=== PATIENT | female | born 1970 | race Caucasian/White ===

== ENCOUNTER 2016-10-09 13:08 | Emergency (ER) | payer BC, OTHER ==
[~2016-10-09] VITALS: Ht 172.7 cm; Wt 117.9 kg
[~2016-10-09 13:08] MED LIST: ACYC800T PO; ALB0.5V INH; ALBUNEBRX IH; AZIT-21 PO; CLAR-19 PO; CYCL10TA45 PO; CYCL10TA9 PO; DOXY100C2 PO; GFN600TCR; GUAI120S36 PO; HYDR-3720 PO; HYDR1TAB PO; HYDR1TAB8 OP; IBP200T PO; IBUP800T26 PO; IBUPROFEN; MTF500T PO; NAPR-243 PO; PARO37.512; PRD20T PO; PRX25T; SULF1TAB38 PO; TRAM50TA2 PO; TRM50T PO
--- NOTE | 2016-10-09 15:22 | ED Headache ---
General Chief Complaint: Head/Cervical Problems Stated Complaint: HEADACHE/NAUSEA JAW PAIN TICK ON BACK OF RT KNEE Nursing Triage Note: PT STATES SHE HAS HAD A HEADACHE FOR ABOUT A WEEK, R JAW PAIN THAT STARTED TODAY AND SHE ALSO NOTICED A TICK ON HER R LEG TODAY THAT SHE COULD NOT GET OUT. Nursing Sepsis Screen: No Definite Risk Source: patient, RN notes reviewed Exam Limitations: no limitations History of Present Illness Time seen by provider: 15:12 Allergies and Home Medications Allergies Coded Allergies: Penicillins (Verified Allergy, Unknown, 05/19/06) Home Medications Cyclobenzaprine Hcl 10 Mg Tablet, 10 MG PO TID PRN for PAIN, #10 Prescribed by: DARCI ADAN on 09/21/13 1558 Ibuprofen 800 Mg Tablet, 800 MG PO q8h PRN for PAIN, (Reported) Past Bzmcfqv-Gxdmlq-Xqkydd Hx Patient Social History Alcohol Use: Denies Use Recreational Drug Use: No Smoking Status: Current Everyday Smoker Type Used: Cigarettes Recent Foreign Travel: No Contact w/Someone Who Travel: No Recent Infectious Disease Expo: No Immunizations Up To Date Date of Pneumonia Vaccine: Apr 04, 2009 Seasonal Allergies Seasonal Allergies: No Surgeries HX Surgeries: Yes (HERNIA REPAIR.) Respiratory Hx Respiratory Disorders: No Cardiovascular Hx Cardiac Disorders: Yes (previous episodes of chest pain) Neurological Hx Neurological Disorders: No Reproductive System Hx Reproductive Disorders: No Sexually Transmitted Disease: No HIV/AIDS: No [employer] History: Tubal Ligation, Menopausal Genitourinary Hx Genitourinary Disorders: No Gastrointestinal Hx Gastrointestinal Disorders: Yes Gastrointestinal Disorders: Gastroesophageal Reflux, Hiatal Hernia Musculoskeletal Hx Musculoskeletal Disorders: Yes Musculoskeletal Disorders: Chronic Back Pain Endocrine Hx Endocrine Disorders: Yes Endocrine Disorders: Diabetes, Non-Insulin dep HEENT HX ENT Disorders: No Cancer Hx Cancer: No Psychosocial Hx Psychiatric Problems: No Integumentary HX Skin/Integumentary Disorder: No Blood Transfusions Hx Blood Disorders: No Family Medical History Significant Family History: No Pertinent Family Hx Physical Exam Vital Signs Vital Sign - Last 12Hours 10/09/16 14:35 Temp 98.3 Pulse 77 Resp 18 B/P (MAP) 151/76 Capillary Refill : Less Than 3 Seconds Progress/Results/Core Measures Results/Orders My Orders Orders - ANGELA LAWSON DO Ct Head/Maxillofacial Wo (10/09/16 15:21) Ketorolac Injection (Toradol Injection) (10/09/16 16:30) Dexamethasone Pf Injection (Decadron Pf (10/09/16 16:30) Vital Signs/I&O Vital Sign - Last 12Hours 10/09/16 14:35 Temp 98.3 Pulse 77 Resp 18 B/P (MAP) 151/76 Blood Pressure Mean: 101 Departure Impression Impression: Primary Impression: Tension type headache Additional Impression: TMJ arthralgia Disposition: 01 HOME, SELF-CARE Condition: Stable Departure-Patient Inst. Decision time for Depature: 16:25 Referrals: [facility] (PCP/Family) Primary Care Physician Patient Instructions: Temporomandibular Joint (TMJ) Disorders (DC), Tension Headache (DC) Scripts Diclofenac Sodium (Diclofenac Sodium) 50 Mg Tablet.dr 50 MG PO Q6H Y for RUTHEROFRD/JAW PAIN, #30 TAB 0 Refills Prov: ANGELA LAWSON DO 10/09/16 ANGELA LAWSON DO October 09, 2016 15:22
--- NOTE | 2016-10-09 16:04 | Diagnostic Imaging Report ---
PROCEDURE: CT head and maxillofacial without contrast. TECHNIQUE: Multiple contiguous axial images were obtained through the head and facial bones without the use of intravenous contrast. INDICATION: Headaches with bilateral jaw pain. FINDINGS: CT HEAD: There is no intracranial hemorrhage, edema or mass effect. The brain parenchyma demonstrate preserved ley-white matter differentiation. There is no hydrocephalus. No extra-axial fluid collection is seen. The calvarium appears grossly unremarkable. MAXILLOFACIAL CT: The zygomatic arch and both sides appear intact. The maxillary sinuses, frontal sinuses, and the sphenoidal sinuses appear clear. There is mild mucosal thickening gas seen in the right anterior ethmoid air cells. There is mild nasoseptal deviation to the right. Mild mucosal thickening in the inferior turbinates bilaterally. The mastoid air cells and middle ear cavities are clear. No fracture seen. IMPRESSION: CT HEAD: Unremarkable exam. CT MAXILLOFACIAL: Minimal mucosal thickening in the anterior right ethmoidal air cells. No significant abnormality seen otherwise. Dictated by: Dictated on workstation # [id number]
[2016-10-09] MEDS ORDERED: DICL50TA6 PO (16:27)
[2016-10-09] MEDS ORDERED: DEXAMETHASONE PF 10 MG/ML (DECADRON) VIAL IM ONE (16:30)
[2016-10-09] MEDS ORDERED: KETOROLAC 60 MG/2 ML VIAL IM ONE (16:30)
[2016-10-09 16:47] VITALS: BP 151/76
== END 2016-10-09 16:51 | disposition home or self-care (01) ==
LOC: EDUNIT# 13:08 → ER 13:11
DX: G44.209 Tension-type headache, unspecified, not intractable (principal); M26.623 Arthralgia of bilateral temporomandibular joint; E11.9 Type 2 diabetes mellitus without complications; F17.210 Nicotine dependence, cigarettes, uncomplicated
CPT/HCPCS: 70450; 70486; 96372; 99282

== ENCOUNTER → 2017-05-14 | Outpatient (CLI) | payer BC ==
[~2017-05-14] MED LIST changes: +DICL50TA6 PO
[2017-05-14 10:51] LABS: RED BLOOD COUNT 5.22 10^6/uL (4.35-5.85); WHITE BLOOD COUNT 7.2 10^3/uL (4.3-11.0)
[2017-05-14 10:52] LABS: BASOPHILS % (AUTO) 0 % (0-10); EOSINOPHILS # (AUTO) 0.2 10^3/uL (0.0-0.3); EOSINOPHILS % (AUTO) 2 % (0-10); LYMPHOCYTES # (AUTO) 2.4 X 10^3 (1.0-4.0); LYMPHOCYTES % (AUTO) 33 % (12-44); MEAN CORPUSCULAR HEMOGLOBIN 29 PG (25-34); MEAN CORPUSCULAR HGB CONC 33 G/DL (32-36); MEAN CORPUSCULAR VOLUME 88 FL (80-99); MEAN PLATELET VOLUME 9.5 FL (7.4-10.4); MONOCYTES # (AUTO) 0.9 X 10^3 (0.0-1.0); MONOCYTES % (AUTO) 13 % (0-12); NEUTROPHILS # (AUTO) 3.7 X 10^3 (1.8-7.8); NEUTROPHILS % (AUTO) 51 % (42-75); PLATELET COUNT 246 10^3/uL (130-400); RED CELL DISTRIBUTION WIDTH 12.8 % (10.0-14.5)
[2017-05-14 11:11] LABS: ALANINE AMINOTRANSFERASE 18 U/L (0-55); ALBUMIN 4.1 GM/DL (3.2-4.5); ANION GAP 7 MMOL/L (5-14); ASPARTATE AMINO TRANSFERASE 15 U/L (5-34); BILIRUBIN,TOTAL 0.3 MG/DL (0.1-1.0); BLOOD UREA NITROGEN 14 MG/DL (7-18); BUN/CREATININE RATIO 19; CALCIUM 9.7 MG/DL (8.5-10.1); CARBON DIOXIDE 29 MMOL/L (21-32); CHLORIDE 104 MMOL/L (98-107); CHOLESTEROL 233 MG/DL (< 200); CREATININE SERUM 0.73 MG/DL (0.60-1.30); DIRECT LDL 147 MG/DL (1-129); GFR ESTIMATED > 60; GLUCOSE 108 MG/DL (70-105); POTASSIUM 4.4 MMOL/L (3.6-5.0); SODIUM 140 MMOL/L (135-145); TOTAL PROTEIN 7.2 GM/DL (6.4-8.2); TRIGLYCERIDES 101 MG/DL (<150); VLDL CHOLESTEROL 20 MG/DL (5-40)
== END ==
LOC: LAB 10:27
PROVIDERS: ATTEND Family Medicine
DX: Z00.01 Encounter for general adult medical examination with abnormal findings (principal); L92.0 Granuloma annulare; Z13.1 Encounter for screening for diabetes mellitus; Z13.220 Encounter for screening for lipoid disorders
CPT/HCPCS: 36415; 80053; 80061; 83036; 84443; 85025; 86038; 86039

== ENCOUNTER → 2017-05-17 | Outpatient (CLI) | payer BC ==
--- NOTE | 2017-05-17 16:30 | Diagnostic Imaging Report ---
PROCEDURE: MRI right joint lower extremity without contrast. TECHNIQUE: Multiplanar, multisequence non contrast-enhanced MRI of the right lower extremity was accomplished. INDICATION: Right knee pain. FINDINGS: There is bwxo-xq-ixbokmdn suprapatellar effusion. There is a Breen's cyst measuring 3.6 x 2 x 4.2 cm in size. Small amount of fluid adjacent to it is suggestive of leakage. There is mild fluid in the superficial infrapatellar bursa suggestive of mild bursitis. The osseous structures demonstrate no significant marrow signal abnormality. The quadriceps tendon and the patellar tendon demonstrates slight tendinosis with no significant tear. The ACL and PCL appear intact. The lateral meniscus is intact. The medial meniscus demonstrates an oblique horizontal tear involving the body and posterior horn of the medial meniscus with no tear in the anterior horn. The lateral meniscus appear intact. The MCL and the lateral collateral ligament complex components appear intact. The body of the medial meniscus demonstrates extrusion. There is small marginal osteophyte formation in the medial and lateral compartments. 25-50% cartilage thinning in the medial compartment is seen. The cartilage in the patellofemoral and lateral compartments is relatively preserved. IMPRESSION: 1. Medial meniscus tear involving the body and posterior horn segments. 2. Mild osteoarthritic changes mostly in the medial compartment. 3. Leaking Breen's cyst. Dictated by: Dictated on workstation # [id number]
== END ==
LOC: RAD 15:08
PROVIDERS: ATTEND Physician Assistant
DX: S83.241A Other tear of medial meniscus, current injury, right knee, initial encounter (principal); M17.11 Unilateral primary osteoarthritis, right knee; M71.21 Synovial cyst of popliteal space [Baker], right knee
CPT/HCPCS: 73721

== ENCOUNTER → 2018-06-06 | Outpatient (CLI) | payer BC ==
[2018-06-06 07:20] LABS: BASOPHILS % (AUTO) 0 % (0-10); EOSINOPHILS # (AUTO) 0.1 10^3/uL (0.0-0.3); EOSINOPHILS % (AUTO) 2 % (0-10); HEMATOCRIT 47 % (35-52); HEMOGLOBIN 15.6 G/DL (11.5-16.0); LYMPHOCYTES # (AUTO) 2.6 X 10^3 (1.0-4.0); LYMPHOCYTES % (AUTO) 32 % (12-44); MEAN CORPUSCULAR HEMOGLOBIN 30 PG (25-34); MEAN CORPUSCULAR HGB CONC 33 G/DL (32-36); MEAN CORPUSCULAR VOLUME 89 FL (80-99); MEAN PLATELET VOLUME 9.8 FL (7.4-10.4); MONOCYTES # (AUTO) 1.1 X 10^3 (0.0-1.0); MONOCYTES % (AUTO) 14 % (0-12); NEUTROPHILS # (AUTO) 4.2 X 10^3 (1.8-7.8); NEUTROPHILS % (AUTO) 52 % (42-75); PLATELET COUNT 215 10^3/uL (130-400); RED BLOOD COUNT 5.28 10^6/uL (4.35-5.85); RED CELL DISTRIBUTION WIDTH 12.8 % (10.0-14.5)
[2018-06-06 07:37] LABS: ALANINE AMINOTRANSFERASE 14 U/L (0-55); ALBUMIN 4.1 GM/DL (3.2-4.5); ALKALINE PHOSPHATASE 76 U/L (40-136); BILIRUBIN,TOTAL 0.3 MG/DL (0.1-1.0); BUN/CREATININE RATIO 19; CALCIUM 9.6 MG/DL (8.5-10.1); CARBON DIOXIDE 23 MMOL/L (21-32); CHLORIDE 106 MMOL/L (98-107); CHOLESTEROL 238 MG/DL (< 200); CREATININE SERUM 0.79 MG/DL (0.60-1.30); GFR ESTIMATED > 60; GLUCOSE 103 MG/DL (70-105); HDL CHOLESTEROL 53 MG/DL (40-60); POTASSIUM 4.3 MMOL/L (3.6-5.0); SODIUM 140 MMOL/L (135-145); TOTAL PROTEIN 7.1 GM/DL (6.4-8.2); TRIGLYCERIDES 148 MG/DL (<150); VLDL CHOLESTEROL 30 MG/DL (5-40)
--- NOTE | 2018-06-06 08:58 | Diagnostic Imaging Report ---
Left forearm at 7:46. Indication: Mid forearm pain. AP and lateral views were obtained. There are no prior studies available for comparison. There is no fracture, dislocation or acute bony abnormality evident. The soft tissues are unremarkable. Impression: There is no evidence for an acute bony abnormality. Dictated by: Dictated on workstation # [id number]
== END ==
LOC: RAD 07:05
PROVIDERS: ATTEND Family Medicine
DX: Z00.00 Encounter for general adult medical examination without abnormal findings (principal); Z13.220 Encounter for screening for lipoid disorders; M79.632 Pain in left forearm; E66.9 Obesity, unspecified
CPT/HCPCS: 36415; 73090; 80053; 80061; 85025

== ENCOUNTER → 2019-05-24 | Emergency (ER) | payer BC ==
[~2019-05-24] VITALS: Ht 172.7 cm; Wt 127.0 kg
[~2019-05-24] MED LIST changes: +AZIT250T12 PO; +BENZ100C18 PO; +OMEP40CA36 PO; +RT-ALBUTEROL/IPRATROPIUM 3 ML (DUONEB) VIAL INH ONE; +RT-ALBUTEROL/IPRATROPIUM 3 ML (DUONEB) VIAL ONE
[2019-05-24 12:29] LABS: BASOPHILS % (AUTO) 0 % (0-10); EOSINOPHILS # (AUTO) 0.1 10^3/uL (0.0-0.3); EOSINOPHILS % (AUTO) 1 % (0-10); HEMATOCRIT 44 % (35-52); HEMOGLOBIN 15.1 G/DL (11.5-16.0); LYMPHOCYTES % (AUTO) 32 % (12-44); MEAN CORPUSCULAR HEMOGLOBIN 29 PG (25-34); MEAN CORPUSCULAR HGB CONC 34 G/DL (32-36); MEAN CORPUSCULAR VOLUME 86 FL (80-99); MEAN PLATELET VOLUME 9.2 FL (7.4-10.4); MONOCYTES # (AUTO) 1.2 X 10^3 (0.0-1.0); MONOCYTES % (AUTO) 13 % (0-12); NEUTROPHILS # (AUTO) 5.2 X 10^3 (1.8-7.8); NEUTROPHILS % (AUTO) 55 % (42-75); PLATELET COUNT 346 10^3/uL (130-400); WHITE BLOOD COUNT 9.6 10^3/uL (4.3-11.0)
--- NOTE | 2019-05-24 12:29 | ED Cough/URI ---
General Chief Complaint: Cough/Cold/Flu Symptoms Stated Complaint: COUGH/CHEST CONGESTION/SOB Nursing Triage Note: Pt c/o cough for two weeks with minimal production of green mucous. Sepsis Screen: No Definite Risk Source: patient Exam Limitations: no limitations History of Present Illness Date Seen by Provider: May 24, 2019 Time Seen by Provider: 12:25 Initial Comments This 49-year-old female presents with cough for the past 2 weeks with mild amount of green mucous production. The patient has had no associated significant headache stiff neck or photophobia. She denies associated nausea vomiting or diarrhea. Past medical history the patient has had previous pneumonia. Patient denies significant shortness of breath or chest pain. She's had no associated hemoptysis. She denies chest pain, palpitations, or peripheral edema. 10 years ago the patient had a history of significant reflux treated with a Parviz fundoplication with them the results. Patient is concerned that she may be suffering from reflux again Allergies and Home Medications Allergies Coded Allergies: Penicillins (Verified Allergy, Unknown, Anaphylaxis, 05/24/19) Home Medications Cyclobenzaprine Hcl 10 Mg Tablet, 10 MG PO TID PRN for PAIN Prescribed by: DARCI ADAN on 09/21/13 1558 Diclofenac Sodium 50 Mg Tablet.dr, 50 MG PO Q6H PRN for RUTHERFORD/JAW PAIN Prescribed by: ANGELA LAWSON on 10/09/16 1627 Ibuprofen 800 Mg Tablet, 800 MG PO q8h PRN for PAIN, (Reported) Patient Home Medication List Home Medication List Reviewed: Yes Review of Systems Review of Systems Constitutional: No chills; fever EENTM: No hearing loss, No ear pain, No throat pain Respiratory: see HPI, cough Cardiovascular: No chest pain, No palpitations Gastrointestinal: No abdominal pain, No nausea, No vomiting Genitourinary: no symptoms reported Musculoskeletal: no symptoms reported Skin: no symptoms reported; No rash Psychiatric/Neurological: No Symptoms Reported Hematologic/Lymphatic: No Symptoms Reported Immunological/Allergic: no symptoms reported Past Onvviwy-Wwpteb-Jyrcup Hx Past Med/Social Hx: Reviewed Nursing Past Med/Soc Hx Patient Social History Alcohol Use: Denies Use Recreational Drug Use: No Smoking Status: Current Everyday Smoker Type Used: Cigarettes Recent Foreign Travel: No Contact w/Someone Who Travel: No Recent Infectious Disease Expo: No Recent Hopitalizations: Yes Immunizations Up To Date Date of Pneumonia Vaccine: Apr 04, 2009 Seasonal Allergies Seasonal Allergies: No Past Medical History Surgeries: Yes (HERNIA REPAIR.) Respiratory: No Cardiac: Yes (previous episodes of chest pain) Neurological: No Reproductive Disorders: No [employer] History: Tubal Ligation, Menopausal Sexually Transmitted Disease: No HIV/AIDS: No Gastrointestinal: Yes Gastroesophageal Reflux, Hiatal Hernia Musculoskeletal: Yes Chronic Back Pain Endocrine: Yes Diabetes, Non-Insulin dep Cancer: No Psychosocial: No Integumentary: No Blood Disorders: No Family Medical History No Pertinent Family Hx Physical Exam Vital Signs - First Documented Capillary Refill : Less Than 3 Seconds Height: 5'8.00" Weight: 260lbs. oz. 117.530642sp; 42.00 BMI Method:Stated General Appearance: WD/WN, no apparent distress Eyes: Bilateral Eye Normal Inspection HEENT: normal ENT inspection, pharyngeal erythema Neck: non-tender, full range of motion, supple Respiratory: normal breath sounds, no respiratory distress Cardiovascular: regular rate, rhythm Gastrointestinal: normal bowel sounds, non tender, soft Extremities: normal range of motion, normal inspection Neurologic/Psychiatric: no motor/sensory deficits, alert Skin: normal color, warm/dry Progress/Results/Core Measures Suspected Sepsis Recent Fever Within 48 Hours: No Infection Criteria Present: None New/Unexplained Altered Menta: No Sepsis Screen: No Definite Risk SIRS Temperature: Pulse: 100 Respiratory Rate: 14 Laboratory Tests 05/24/19 12:20: White Blood Count 9.6 Blood Pressure 148 /89 Mean: 108 Laboratory Tests 05/24/19 12:20: Platelet Count 346 Results/Orders Lab Results Laboratory Tests Test 05/24/19 12:10 05/24/19 12:20 Range/Units Group A Streptococcus Screen NEGATIVE NEGATIVE White Blood Count 9.6 4.3-11.0 10^3/uL Red Blood Count 5.19 4.35-5.85 10^6/uL Hemoglobin 15.1 11.5-16.0 G/DL Hematocrit 44 35-52 % Mean Corpuscular Volume 86 80-99 FL Mean Corpuscular Hemoglobin 29 25-34 PG Mean Corpuscular Hemoglobin Concent 34 32-36 G/DL Red Cell Distribution Width 13.0 10.0-14.5 % Platelet Count 346 130-400 10^3/uL Mean Platelet Volume 9.2 7.4-10.4 FL Neutrophils (%) (Auto) 55 42-75 % Lymphocytes (%) (Auto) 32 12-44 % Monocytes (%) (Auto) 13 H 0-12 % Eosinophils (%) (Auto) 1 0-10 % Basophils (%) (Auto) 0 0-10 % Neutrophils # (Auto) 5.2 1.8-7.8 X 10^3 Lymphocytes # (Auto) 3.0 1.0-4.0 X 10^3 Monocytes # (Auto) 1.2 H 0.0-1.0 X 10^3 Eosinophils # (Auto) 0.1 0.0-0.3 10^3/uL Basophils # (Auto) 0.0 0.0-0.1 10^3/uL My Orders Orders - MARGAUX SEARS MD Albuterol/Ipra Inhalation Soln (Duoneb I (05/24/19 12:15) Svn Small Volume Nebulizer (05/24/19 12:10) Chest 1 View, Ap/Pa Only (05/24/19 12:11) Cbc With Automated Diff (05/24/19 12:11) Rapid Strep A Screen (05/24/19 12:11) Albuterol/Ipra Inhalation Soln (Duoneb I (05/24/19 12:09) Medications Given in ED Current Medications Medications Dose Ordered Sig/Beck Route Start Time Stop Time Status Last Admin Dose Admin Albuterol/ Ipratropium 3 ml ONCE ONCE INH 05/24/19 12:15 05/24/19 12:16 DC 05/24/19 12:14 3 ML Vital Signs/I&O 05/24/19 05/24/19 05/24/19 12:05 12:05 12:14 Temp 36.1 Pulse 100 Resp 14 B/P (MAP) 148/89 (108) Pulse Ox 97 93 O2 Delivery Room Air Room Air Room Air Capillary Refill : Less Than 3 Seconds Blood Pressure Mean: 108 Progress Note : Time: 12:44 Progress Note Patient's CBC and strep screen were unremarkable. Patient's chest x-ray demonstrated an increase in perihilar markings. After discussion of the patient's findings and with her history of severe reflux and a decade ago I placed the patient on the Z-Marin and Tessalon Perles for probable bronchitis. In addition I started the patient on omeprazole in the event that this is primarily from reflux. I asked that she follow-up closely with her primary care physician Dr. Trivedi on Sunday. I invited her to return the emergency Department if she had any further problems or questions. Departure Impression Primary Impression: Bronchitis Additional Impression: Reflux esophagitis Disposition: HOME, SELF-CARE Condition: Improved Departure-Patient Inst. Decision time for Depature: 12:56 Referrals: KOBI TRIVEDI MD (PCP/Family) Primary Care Physician Patient Instructions: Acid Reflux (Gastroesophageal Reflux Disease) in Adults, Acute Bronchitis, Adult (DC), Dyspepsia (DC) Add. Discharge Instructions: Tessalon Perles, Z-Marin, and omeprazole as prescribed. Close follow-up with Dr. Kobi Trivedi on Sunday. Return if any problems or questions. All discharge instructions reviewed with patient and/or family. Voiced understanding. Scripts Azithromycin (Azithromycin) 250 Mg Tablet 250 MG PO UD, #6 TAB TAKE 2 TABLETS ON DAY ONE THEN TAKE 1 TABLET DAILY FOR FOUR MORE DAYS Prov: MARGAUX SEARS MD 05/24/19 Benzonatate (TESSALON PERLES) 100 Mg Capsule 200 MG PO TID PRN for COUGH, #30 CAP Prov: MARGAUX SEARS MD 05/24/19 Omeprazole (Omeprazole) 40 Mg Capsule. 40 MG PO DAILY, #20 CAP Prov: MARGAUX SEARS MD 05/24/19 MARGAUX SEARS MD May 24, 2019 12:28
--- NOTE | 2019-05-24 12:48 | Diagnostic Imaging Report ---
EXAMINATION: Chest 1 view HISTORY: Shortness of breath COMPARISON: 06/18/2013 FINDINGS: There is patchy atelectasis involving the left lung. No edema or pneumonia. No pleural effusion or pneumothorax. Heart size normal. IMPRESSION: 1. Patchy atelectasis involving the left lung, increased from prior exam. Dictated by: Dictated on workstation # [id number]
[2019-05-24 13:00] VITALS: BP 124/67
== END | disposition home or self-care (01) ==
LOC: EDUNIT# 12:01 → ER 12:02
DX: J40 Bronchitis, not specified as acute or chronic (principal); K21.0 Gastro-esophageal reflux disease with esophagitis; E11.9 Type 2 diabetes mellitus without complications; F17.210 Nicotine dependence, cigarettes, uncomplicated; Z88.0 Allergy status to penicillin; Z98.51 Tubal ligation status
CPT/HCPCS: 36415; 71045; 85025; 87430; 94640

== ENCOUNTER 2019-08-05 15:51 | Emergency (ER) | payer BC ==
[~2019-08-05] VITALS: Ht 172 cm; Wt 127.0 kg
[~2019-08-05 15:51] MED LIST changes: +OMEP40CA27 PO; -OMEP40CA36 PO; -RT-ALBUTEROL/IPRATROPIUM 3 ML (DUONEB) VIAL INH ONE; -RT-ALBUTEROL/IPRATROPIUM 3 ML (DUONEB) VIAL ONE
[2019-08-05 16:02] VITALS: BP 148/87
--- NOTE | 2019-08-05 16:18 | ED Lower Extremity ---
General Chief Complaint: Lower Extremity Stated Complaint: KNEE PAIN Exam Limitations: no limitations History of Present Illness Date Seen by Provider: Aug 05, 2019 Time Seen by Provider: 16:14 Initial Comments 49-year-old female presents with left knee pain. Patient reports that 6 days ago she stepped down off of a step/stool and twisted her left knee. Patient was seen 4 days ago by her primary care provider. They have an MRI scheduled for 08/12/2019. Patient reports that she's continued to have some pain. Patient did not cw-uqeuol-uo with her primary care provider. Patient does not have any new injury besides that which she is very been seen. Allergies and Home Medications Allergies Coded Allergies: Penicillins (Verified Allergy, Unknown, Anaphylaxis, 05/24/19) Home Medications Azithromycin 250 Mg Tablet, 250 MG PO UD TAKE 2 TABLETS ON DAY ONE THEN TAKE 1 TABLET DAILY FOR FOUR MORE DAYS Prescribed by: MARGAUX SEARS MD on 05/24/19 1300 Benzonatate 100 Mg Capsule, 200 MG PO TID PRN for COUGH Prescribed by: MARGAUX SEARS MD on 05/24/19 1300 Cyclobenzaprine Hcl 10 Mg Tablet, 10 MG PO TID PRN for PAIN Prescribed by: DARCI ADAN on 09/21/13 1558 Diclofenac Sodium 50 Mg Tablet.dr, 50 MG PO Q6H PRN for RUTHERFORD/JAW PAIN Prescribed by: ANGELA LAWSON on 10/09/16 1627 Ibuprofen 800 Mg Tablet, 800 MG PO q8h PRN for PAIN, (Reported) Omeprazole 40 Mg Capsule.dr, 40 MG PO DAILY Prescribed by: MARGAUX SEARS MD on 05/24/19 1300 Patient Home Medication List Home Medication List Reviewed: Yes Review of Systems Constitutional: see HPI EENTM: see HPI Respiratory: see HPI Cardiovascular: see HPI Gastrointestinal: see HPI Genitourinary: see HPI Musculoskeletal: see HPI Skin: no symptoms reported Past Lfgekym-Ipkuwx-Xtotbw Hx Past Med/Social Hx: Reviewed Nursing Past Med/Soc Hx Patient Social History Type Used: Cigarettes Recent Foreign Travel: No Contact w/Someone Who Travel: No Recent Hopitalizations: Yes Immunizations Up To Date Date of Pneumonia Vaccine: Apr 04, 2009 Seasonal Allergies Seasonal Allergies: No Past Medical History Surgeries: Yes (HERNIA REPAIR.) Respiratory: No Cardiac: Yes (previous episodes of chest pain) Neurological: No Reproductive Disorders: No [employer] History: Tubal Ligation, Menopausal Sexually Transmitted Disease: No HIV/AIDS: No Gastrointestinal: Yes Gastroesophageal Reflux, Hiatal Hernia Musculoskeletal: Yes Chronic Back Pain Endocrine: Yes Diabetes, Non-Insulin dep Cancer: No Psychosocial: No Integumentary: No Blood Disorders: No Family Medical History No Pertinent Family Hx Physical Exam Vital Signs Capillary Refill : Height, Weight, BMI Height: 5'8.00" Weight: 260lbs. oz. 117.196409eg; 42.00 BMI Method:Stated General Appearance: WD/WN, obese Cardiovascular: regular rate, rhythm Respiratory: no respiratory distress Hips: bilateral hip non-tender Legs: bilateral leg non-tender Knees: right knee non-tender; left knee soft tissue tenderness; bilateral knee other (no signs of acute ligament instability.) Ankles: bilateral ankle non-tender Neurologic/Tendon: normal sensation Neurologic/Psychiatric: alert, normal mood/affect, oriented x 3 Skin: normal color, warm/dry Progress/Results/Core Measures Progress Progress Note : Time: 16:16 Progress Note Patient has already been seen and evaluated by her primary care provider with an MRI scheduled. With no acute injury or no indications for any further imaging or workup at this time. Discussed with patient that she can use an Rodriguez wrap along with topical lidocaine with menthol, Tylenol and ibuprofen as needed for pain. Patient ate something stronger for pain she will need to follow-up with her primary care provider. Patient is discharged home in stable condition Departure Impression Primary Impression: Injury of left knee Qualified Codes: S89.92XA - Unspecified injury of left lower leg, initial encounter Disposition: 01 HOME, SELF-CARE Condition: Stable Departure-Patient Inst. Referrals: RICH TRIVEDI MD (PCP/Family) Primary Care Physician Patient Instructions: Internal Derangement of the Knee (DC) Add. Discharge Instructions: 4% topical lidocaine with menthol to affected area as directed on package Warm moist heat to affected area Tylenol or ibuprofen as needed for pain Emergency department focuses on treating and ruling out life-threatening diseases. Whenever possible, a diagnosis is given. However, most patients are given an impression based on their history, physical exam, and workup during your brief time in the ER. Information about probable diagnosis and other educational material has been provided. Please take the time to read and understand this information. It is very important that you follow up with a physician as discussed during the visit today. Failure to adhere to your follow-up instructions may lead to severe disability, injury, or so please make sure to keep your appointments or obtain one as requested. Please keep in mind the emergency department is not designed to your primary care or "family doctor" and nonurgent issues are best evaluated by an outpatient physician All discharge instructions reviewed with patient and/or family. Voiced understanding. MARLEN VACA DO Aug 05, 2019 16:18
== END 2019-08-05 16:29 | disposition home or self-care (01) ==
LOC: EDUNIT# 15:51 → ER 15:53
DX: S89.92XA Unspecified injury of left lower leg, initial encounter (principal); K21.9 Gastro-esophageal reflux disease without esophagitis; Z88.0 Allergy status to penicillin; X50.1XXA Overexertion from prolonged static or awkward postures, initial encounter
CPT/HCPCS: 99283

== ENCOUNTER → 2019-08-12 | Outpatient (CLI) | payer BC ==
--- NOTE | 2019-08-12 11:34 | Diagnostic Imaging Report ---
EXAMINATION: Magnetic resonance imaging of the left knee without intravenous contrast DATE: August 12, 2019. COMPARISON: None. INDICATION: 49-year-old female, left knee pain after injury. TECHNIQUE: Multiplanar, multisequence non contrast enhanced MR imaging was accomplished. FINDINGS: There are some limitations of the exam relating to the low zegdpk-ah-jfizt ratio. MENISCI: There is an oblique tear with inferior surface extension involving the body and posterior horn of the medial meniscus. The lateral meniscus is intact. LIGAMENTS AND TENDONS: The anterior and posterior cruciate ligaments are intact. The medial collateral ligament is intact. The iliotibial band, mid third lateral capsular ligament, fibular collateral ligament, biceps femoris tendon and conjoined tendon are intact. The quadriceps tendon and patella ligament are intact. JOINT: There is a cartilage flap measuring 3 mm in transverse dimension involving the medial patellar facet on axial T2 fat saturation sequence image 7. There is mild thinning of the cartilage of the median patellar ridge and medial aspect of the lateral patellar facet. There is mild medial compartment cartilage thinning and surface irregularity. There is a trace knee joint effusion without prominent synovitis or identified intra-articular body. BONE: There is unremarkable bone marrow signal. Specifically, negative for fracture, osteomyelitis, osteonecrosis, or marrow replacing process. BURSAE AND SOFT TISSUES: There is no Breen's cyst. There is nonspecific predominantly anterior subcutaneous edema. IMPRESSION: 1. Oblique tear with inferior surface extension involving the body and posterior horn of the medial meniscus. 2. Intact lateral meniscus. 3. Intact anterior and posterior cruciate ligaments. Additional ligaments and tendons are intact. 4. No acute fracture, bone contusion, or evidence of osteonecrosis. 5. Mild patellofemoral and medial compartment osteoarthritis. Trace knee joint effusion without prominent synovitis or identified intra-articular body. Dictated by: Dictated on workstation # [id number]
== END ==
LOC: RAD 10:03
PROVIDERS: ATTEND Family Medicine
DX: S83.242A Other tear of medial meniscus, current injury, left knee, initial encounter (principal); M17.12 Unilateral primary osteoarthritis, left knee
CPT/HCPCS: 73721

== ENCOUNTER → 2019-11-26 | Outpatient (CLI) | payer BC ==
--- NOTE | 2019-11-26 14:37 | Diagnostic Imaging Report ---
PROCEDURE: MRI lumbar spine. TECHNIQUE: Multiplanar, multisequence MRI of the lumbar spine was performed without contrast. INDICATION: Chronic low back pain. COMPARISON: No prior studies are available for comparison. FINDINGS: Curvature of the lumbar spine is normal. There is minimal retrolisthesis of L2 on L3. Vertebral body heights are well-maintained. No acute compression fracture is seen. No geographic marrow lesion is seen apart from small benign hemangiolipomas at the L1 and L4 levels. There is some disc space narrowing and desiccation at L2-L3 level compatible with degenerative disc disease. There is some mild desiccation at L4-L5 and L5-S1 levels but no disc space narrowing is seen. The conus is unremarkable at the L1 level. T12-L1: Central canal is widely patent. Neural foramina are patent. L1-L2: Central canal is widely patent. Neural foramina are patent. L2-L3: There is broad-based disc/osteophyte complex indenting the ventral thecal sac. There is mild canal narrowing. There is also moderate narrowing in bilateral lateral recesses. No significant neural foraminal narrowing is seen. L3-L4: Central canal and neural foramina are patent. L4-L5: Central canal is widely patent. There is a broad-based far lateral disc/osteophyte complex resulting in bilateral neural foraminal narrowing, moderate bilaterally. There is also bilateral lateral recess narrowing. L5-S1: Central canal is widely patent. There is moderate bilateral neural foraminal narrowing bilaterally due to broad-based disc/osteophyte complex. Paraspinous tissues are unremarkable. IMPRESSION: Generalized lumbar spondylosis with lateral recess and neural foraminal narrowing described level by level above. There is also mild central canal narrowing at L2-L3 level. Dictated by: Dictated on workstation # [id number]
== END ==
LOC: RAD 13:31
PROVIDERS: ATTEND Orthopaedic Surgery
DX: M47.26 Other spondylosis with radiculopathy, lumbar region (principal)
CPT/HCPCS: 72148

== ENCOUNTER → 2020-01-23 | Outpatient (CLI) | payer BC ==
[2020-01-23 08:33] LABS: BASOPHILS % (AUTO) 0 % (0-10); EOSINOPHILS # (AUTO) 0.2 10^3/uL (0.0-0.3); EOSINOPHILS % (AUTO) 2 % (0-10); HEMATOCRIT 45 % (35-52); HEMOGLOBIN 15.2 G/DL (11.5-16.0); LYMPHOCYTES # (AUTO) 2.6 X 10^3 (1.0-4.0); LYMPHOCYTES % (AUTO) 29 % (12-44); MEAN CORPUSCULAR HEMOGLOBIN 30 PG (25-34); MEAN CORPUSCULAR HGB CONC 34 G/DL (32-36); MEAN CORPUSCULAR VOLUME 87 FL (80-99); MEAN PLATELET VOLUME 9.6 FL (7.4-10.4); MONOCYTES # (AUTO) 1.1 X 10^3 (0.0-1.0); MONOCYTES % (AUTO) 12 % (0-12); NEUTROPHILS # (AUTO) 4.9 X 10^3 (1.8-7.8); NEUTROPHILS % (AUTO) 56 % (42-75); PLATELET COUNT 235 10^3/uL (130-400); RED CELL DISTRIBUTION WIDTH 13.2 % (10.0-14.5); WHITE BLOOD COUNT 8.7 10^3/uL (4.3-11.0)
[2020-01-23 08:50] LABS: ALANINE AMINOTRANSFERASE 15 U/L (0-55); ALBUMIN 4.4 GM/DL (3.2-4.5); ALKALINE PHOSPHATASE 82 U/L (40-136); BILIRUBIN,TOTAL 0.4 MG/DL (0.1-1.0); BUN/CREATININE RATIO 16; CALCIUM 9.5 MG/DL (8.5-10.1); CARBON DIOXIDE 26 MMOL/L (21-32); CHLORIDE 102 MMOL/L (98-107); CHOLESTEROL 242 MG/DL (< 200); GFR ESTIMATED > 60; GLUCOSE 110 MG/DL (70-105); HDL CHOLESTEROL 60 MG/DL (40-60); MAGNESIUM 2.1 MG/DL (1.6-2.4); POTASSIUM 3.6 MMOL/L (3.6-5.0); SODIUM 136 MMOL/L (135-145); TOTAL PROTEIN 7.7 GM/DL (6.4-8.2); TRIGLYCERIDES 134 MG/DL (<150); VLDL CHOLESTEROL 27 MG/DL (5-40)
== END ==
LOC: LAB 08:11
PROVIDERS: ATTEND Family Medicine
DX: Z13.220 Encounter for screening for lipoid disorders (principal); R25.2 Cramp and spasm; R53.83 Other fatigue
CPT/HCPCS: 36415; 80053; 80061; 83735; 85025

== ENCOUNTER → 2020-09-07 | Outpatient (CLI) | payer BC | LOC: CARD 08:30 | PROVIDERS: ATTEND Internal Medicine Cardiovascular Disease | DX: I51.7 Cardiomegaly (principal); I34.0 Nonrheumatic mitral (valve) insufficiency; Z86.16 Personal history of COVID-19 | CPT/HCPCS: 93225; 93226; 93306 ==

== ENCOUNTER → 2020-09-08 | Outpatient (CLI) | payer BC ==
[2020-09-08 09:23] LABS: BASOPHILS % (AUTO) 1 % (0-10); EOSINOPHILS # (AUTO) 0.2 10^3/uL (0.0-0.3); EOSINOPHILS % (AUTO) 2 % (0-10); HEMATOCRIT 48 % (35-52); HEMOGLOBIN 15.3 g/dL (11.5-16.0); LYMPHOCYTES # (AUTO) 1.7 10^3/uL (1.0-4.0); LYMPHOCYTES % (AUTO) 24 % (12-44); MEAN CORPUSCULAR HEMOGLOBIN 29 pg (25-34); MEAN CORPUSCULAR HGB CONC 32 g/dL (32-36); MEAN CORPUSCULAR VOLUME 92 fL (80-99); MEAN PLATELET VOLUME 9.4 fL (9.0-12.2); MONOCYTES # (AUTO) 0.8 10^3/uL (0.0-1.0); MONOCYTES % (AUTO) 11 % (0-12); NEUTROPHILS # (AUTO) 4.4 10^3/uL (1.8-7.8); NEUTROPHILS % (AUTO) 61 % (42-75); PLATELET COUNT 246 10^3/uL (130-400); WHITE BLOOD COUNT 7.1 10^3/uL (4.3-11.0)
[2020-09-08 09:42] LABS: ALANINE AMINOTRANSFERASE 17 U/L (0-55); ALKALINE PHOSPHATASE 76 U/L (40-136); BILIRUBIN,TOTAL 0.4 MG/DL (0.1-1.0); BUN/CREATININE RATIO 12; CALCIUM 9.1 MG/DL (8.5-10.1); CARBON DIOXIDE 23 MMOL/L (21-32); CHLORIDE 108 MMOL/L (98-107); CREATININE SERUM 0.81 MG/DL (0.60-1.30); GFR ESTIMATED > 60; GLUCOSE 114 MG/DL (70-105); MAGNESIUM 2.1 MG/DL (1.6-2.4); POTASSIUM 4.3 MMOL/L (3.6-5.0); SODIUM 140 MMOL/L (135-145); TOTAL PROTEIN 7.1 GM/DL (6.4-8.2)
[2020-09-08 09:43] LABS: ERYTHROCYTE SEDIMENTATION RATE 4 MM/HR (0-30)
== END ==
LOC: LAB 09:05
PROVIDERS: ATTEND Internal Medicine Cardiovascular Disease
DX: R06.09 Other forms of dyspnea (principal)
CPT/HCPCS: 36415; 80053; 83735; 84443; 85025; 85652

== ENCOUNTER → 2020-09-24 | Outpatient (CLI) | payer BC ==
[~2020-09-24] VITALS: Ht 172 cm; Wt 118.0 kg
[~2020-09-24] MED LIST changes: +REGADENOSON 0.4 MG/5 ML SYR (LEXISCAN) IV ONE
[2020-09-24] MEDS: CATHETER FLUSH 10 ML SYR IV PRN ×2 (07:27→08:51)
[2020-09-24 08:49] VITALS: BP 140/67
--- NOTE | 2020-09-27 11:47 | STRESS TEST ---
DATE OF SERVICE: 09/24/2020 RESTING AND POST REGADENOSON TECHNETIUM-99M TETROFOSMIN SPECT CT IMAGING ORDERING PHYSICIAN: Dr. Rivas. PRIMARY PHYSICIAN: Dr. Palmer. CLINICAL DIAGNOSIS: Shortness of breath. Baseline images were carried out after injection of 10.17 mCi of technetium-99m Tetrofosmin. This was followed by 0.4 mg Regadenoson and 28.4 mCi of technetium-99m Tetrofosmin for stress imaging. The electrocardiogram shows sinus rhythm at baseline. It did not change significantly with the Regadenoson infusion. Review of images at rest and following stress indicates a perfusion defect, small to moderate, at the apex, which is seen both at rest and following Regadenoson infusion. However, gated images show normal global left ventricular systolic function, including normal motion of the apical wall of the left ventricle. This indicates that there may be small to moderate amount of apical ischemia. Left ventricular ejection fraction is calculated to be 68%. Left ventricular end diastolic volume is 79 mL. TID is absent (1.04). CONCLUSIONS: 1. This study suggests a small to moderate amount of anteroapical ischemia. 2. Normal regional wall motion. 3. Normal global left ventricular systolic function with an ejection fraction of 68%. Job ID: [id number] DocumentID: [id number] Dictated Date: 09/27/2020 10:02:59 Filer Helper Date: 09/27/2020 11:47:02 Dictated By: MANOHAR RIVAS MD, MA, FACP, FACC,
== END ==
LOC: CARD 07:30
PROVIDERS: ATTEND Internal Medicine Cardiovascular Disease
DX: R06.09 Other forms of dyspnea (principal); R06.02 Shortness of breath
CPT/HCPCS: 78452; 93017; A9502

== ENCOUNTER 2020-10-12 09:58 | Day surgery (SDC) | payer BC ==
[~2020-10-12] VITALS: Ht 172 cm; Wt 120.0 kg
[2020-10-12] VITALS (11 sets, daily range): BP systolic 124–145; BP diastolic 41–80
[~2020-10-12 09:58] MED LIST changes: -REGADENOSON 0.4 MG/5 ML SYR (LEXISCAN) IV ONE
[2020-10-12] MEDS ORDERED: HEParin (CATH LAB) 2,000 ML IV ONE (10:08)
[2020-10-12] MEDS ORDERED: LIDOCAINE 1% INJ 20 ML 20 ML VIAL ONE (10:08)
[2020-10-12] MEDS ORDERED: NS IV 1000 ML 1,000 ML ONE (10:09)
[2020-10-12] MEDS ORDERED: NS IV 1000 ML 1,000 ML IV SCH ×2 (10:30→13:15)
[2020-10-12 10:43] LABS: HEMOGLOBIN 15.1 g/dL (11.5-16.0); MEAN PLATELET VOLUME 9.6 fL (9.0-12.2)
[2020-10-12] MEDS ORDERED: ASPI-999 PO (10:44)
[2020-10-12] MEDS ORDERED: METO100T6 PO (10:44)
[2020-10-12 10:54] LABS: INR 0.9 (0.8-1.4); PROTHROMBIN TIME PATIENT 12.1 SEC (12.2-14.7)
[2020-10-12 11:02] LABS: ALANINE AMINOTRANSFERASE 21 U/L (0-55); ALBUMIN 4.3 GM/DL (3.2-4.5); ALKALINE PHOSPHATASE 75 U/L (40-136); BILIRUBIN,TOTAL 0.4 MG/DL (0.1-1.0); BUN/CREATININE RATIO 10; CALCIUM 9.4 MG/DL (8.5-10.1); CARBON DIOXIDE 27 MMOL/L (21-32); CHLORIDE 103 MMOL/L (98-107); CHOLESTEROL 230 MG/DL (< 200); CREATININE SERUM 0.79 MG/DL (0.60-1.30); GFR ESTIMATED > 60; GLUCOSE 108 MG/DL (70-105); HDL CHOLESTEROL 54 MG/DL (40-60); POTASSIUM 3.8 MMOL/L (3.6-5.0); SODIUM 140 MMOL/L (135-145); TOTAL PROTEIN 7.5 GM/DL (6.4-8.2); TRIGLYCERIDES 146 MG/DL (<150); VLDL CHOLESTEROL 29 MG/DL (5-40)
[2020-10-12] MEDS ORDERED: fentaNYL INJ 100 MCG/2 ML AMP ONE (12:11)
[2020-10-12] MEDS ORDERED: MIDAZOLAM 5 MG/5 ML (VERSED) VIAL ONE (12:11)
--- NOTE | 2020-10-12 13:11 | Cardiac Procedure Note-CS/ASA ---
Pre-Procedure Note Pre-Op Procedure Note H&P Reviewed The H&P was reviewed, patient examined and no changes noted. Date H&P Reviewed: October 12, 2020 Time H&P Reviewed: 12:30 Conscious Sedation Pre-Proced Time 12:30 ASA Score 3 For ASA 3 and 4: Consider anesthesia and medical clearance. Also, for patients with a history of failed moderate sedation consider anesthesia. Airway Lungs Heart ASA score ASA 1: a normal healthy patient ASA 2: a patient with a mild systemic disease (mid diabetes, controlled hypertension, obesity ASA 3: a patient with a severe systemic disease that limits activity (angina, COPD, prior Myocardial infarction) ASA 4: a patient with an incapacitating disease that is a constant threat to life (CHF, renal failure) ASA 5: a moribund patient not expected to survive 24 hrs. (ruptured aneurysm) ASA 6: a declared brain- patient whose organs are being harvested. For emergent operations, add the letter E after the classification Mallampati Classification Grade 3 Sedation Plan Analgesia, Amnesia, Plan communicated to team members, Discussed options with patient/fam, Discussed risks with patient/fam The patient is an appropriate candidate to undergo the planned procedure, sedation, and anesthesia. The patient immediately re-assessed prior to indication. MANOHAR ALBERTO MD FACP FAC CCDS October 12, 2020 13:11
[2020-10-12] MEDS ORDERED: PATIENT MAY USE OWN MEDS, ALL PO SCH (13:15)
--- NOTE | 2020-10-12 13:15 | Discharge Inst-Cardiology ---
Discharge Inst-Cardiac Discharge Medications Continued Medications: Ibuprofen (Ibuprofen) 800 Mg Tablet 800 MG PO q8h PRN for PAIN, TAB Metoprolol Succinate (Toprol Xl) 100 Mg Tab.er.24h 100 MG PO DAILY, TAB Discontinued Medications: Aspirin (Aspirin) 81 Mg Tab.chew 81 MG PO DAILY, TAB MANOHAR ALBERTO MD FACP FAC CCDS October 12, 2020 13:15
--- NOTE | 2020-10-12 13:15 | Discharge Inst-Post CATH ---
Discharge Inst-CATH/EP Post Cardiac Cath/EP D/C Inst Follow Up/Plan F/u with Dr Rivas in 2 weeks ACTIVITY * Go Home directly and rest. * Limit activity of the leg (or wrist if it was used) for 7 days including aerobics, swimming, jogging, bicycling, etc. * Restrict stair-climbing for 7 days if possible, if not, climb up with your n on-cath leg, then bring together on the same step. * Avoid lifting, pushing, pulling or excessive movement of the affected ex tremity for 7 days. * Customary sexual activity may be resumed after 2 days-use caution not to use a position that strains or causes pain to the affected extremity. * No driving for 24 hours. * NO SMOKING. * Avoid straining for bowel movements for 7 days. * Gentle walking on level ground is allowed. * Returning to work will depend on the type of procedure and the results. Your doctor will discuss this with you. CALL YOUR DOCTOR FOR ANY OF THE FOLLOWING: *If bleeding from the puncture site occurs- Apply gentle pressure to site with clean cloth and call your doctor or EMS. * If a knot or lump forms under the skin, increases in size, or causes pain. * If bruising appears to be worsening or moving further down your leg instead of disappearing. * Temperature above 101 F. CARE OF YOUR GROIN INCISION; * Bruising or purple discoloration of the skin near the puncture site is common. * You may shower only, no bathtub bathing for 5 days. Be careful to avoid slipping as your leg may feel stiff. * If a closure device was used on your femoral artery, please see the attached guide regarding care of the device and your leg. * Leave dressing on FOR 24 hours. CARE OF YOUR WRIST INCISION; * Bruising or purple discoloration of the skin near the puncture site is common. * You may shower. * DO NOT submerge wrist. * Leave dressing on FOR 24 hours. MANOAHR RIVAS MD FACP FAC CCDS October 12, 2020 13:15
--- NOTE | 2020-10-12 15:41 | CARDIAC CATHETERIZATION ---
DATE OF SERVICE: 10/12/2020 CARDIAC CATHETERIZATION INDICATION FOR PROCEDURE: The patient is a 50-year-old lady, who has been experiencing palpitations and increasing shortness of breath. A myocardial perfusion imaging study was indicative of apical ischemia. Cardiac catheterization was carried out after having obtained an informed consent. DESCRIPTION OF PROCEDURE: She was brought to the cardiac catheterization laboratory in a fasting state. Right groin was prepared and draped in the usual sterile fashion. Lidocaine 1% was used for local anesthesia. Modified Seldinger technique was used to advance a 5-Paraguayan sheath in the right femoral artery, 5-[place]agu[place] JL4 catheter for left coronary angiography, 5-[place]aguayan JR4 catheter was used for right coronary angiography, 5-[place]aguayan pigtail catheter was used for left heart catheterization and left ventricular angiography. Angiography of the right femoral artery was carried out through the sheath. The site of sheath insertion did not appear suitable for device closure. She was transferred to the holding area for manual sheath removal. She tolerated the procedure well. HEMODYNAMICS: Left ventricular end-diastolic pressure following coronary angiography was 14 mmHg. There was no significant pressure gradient on pullback across the aortic valve. Ascending aortic pressure was 92/53 with a mean of 70 mmHg. CORONARY ANGIOGRAPHY: Left main coronary artery, left anterior descending artery, left circumflex artery, and right coronary artery do not exhibit any angiographically significant coronary artery disease. LEFT VENTRICULAR ANGIOGRAPHY: Left ventricular angiography was carried out in the right anterior oblique projection. Global left ventricular systolic function is normal. Left ventricular ejection fraction is estimated to be 60%. CONCLUSIONS: 1. No significant coronary artery disease seen on this study. 2. Normal global left ventricular systolic function with an ejection fraction of approximately 60%. 3. Mild elevation of left ventricular end-diastolic pressure. DISCUSSION AND RECOMMENDATIONS: Based on results of the study, symptoms do not appear to be of coronary origin. Myocardial perfusion imaging appears to have been false positive. Continuing risk factor modification is advised. Outpatient followup is advised. Job ID: [id number] DocumentID: [id number] Dictated Date: 10/12/2020 13:19:21 Ballroom Dancer Date: 10/12/2020 15:40:49 Dictated By: MANOHAR ALBERTO MD, MA, FACP, FACC, MTDD
== END 2020-10-12 18:00 ==
LOC: CATH 09:58 → SDC 13:30 → CATH 18:00
PROVIDERS: ATTEND Internal Medicine Cardiovascular Disease
DX: R00.2 Palpitations (principal); R06.09 Other forms of dyspnea; R94.39 Abnormal result of other cardiovascular function study; I99.8 Other disorder of circulatory system; I10 Essential (primary) hypertension; F17.210 Nicotine dependence, cigarettes, uncomplicated; Z88.0 Allergy status to penicillin; Z90.49 Acquired absence of other specified parts of digestive tract; Z79.899 Other long term (current) drug therapy; Z82.49 Family history of ischemic heart disease and other diseases of the circulatory system; Z83.3 Family history of diabetes mellitus; Z80.9 Family history of malignant neoplasm, unspecified
CPT/HCPCS: 80053; 80061; 85027; 85610; 85730; 87081; 93458; C1894; 36415

== ENCOUNTER 2021-12-20 18:04 | Emergency (ER) | payer BC ==
[~2021-12-20] VITALS: Ht 172.7 cm; Wt 120.0 kg
[~2021-12-20 18:04] MED LIST changes: +ASPI-999 PO; +METO100T6 PO; -OMEP40CA27 PO; +OMEP40CA6 PO
[2021-12-20 18:46] LABS: BASOPHILS % (AUTO) 0 % (0-10); EOSINOPHILS # (AUTO) 0.1 10^3/uL (0.0-0.3); EOSINOPHILS % (AUTO) 1 % (0-10); HEMATOCRIT 49 % (35-52); HEMOGLOBIN 16.1 g/dL (11.5-16.0); LYMPHOCYTES # (AUTO) 2.3 10^3/uL (1.0-4.0); LYMPHOCYTES % (AUTO) 24 % (12-44); MEAN CORPUSCULAR HEMOGLOBIN 29 pg (25-34); MEAN CORPUSCULAR HGB CONC 33 g/dL (32-36); MEAN CORPUSCULAR VOLUME 89 fL (80-99); MEAN PLATELET VOLUME 9.5 fL (9.0-12.2); MONOCYTES # (AUTO) 1.1 10^3/uL (0.0-1.0); MONOCYTES % (AUTO) 11 % (0-12); NEUTROPHILS % (AUTO) 63 % (42-75); PLATELET COUNT 231 10^3/uL (130-400); WHITE BLOOD COUNT 9.5 10^3/uL (4.3-11.0)
[2021-12-20 19:01] LABS: ALBUMIN 4.4 GM/DL (3.2-4.5); POTASSIUM 4.1 MMOL/L (3.6-5.0)
[2021-12-20 19:02] LABS: CALCIUM 9.8 MG/DL (8.5-10.1)
[2021-12-20 19:03] LABS: INR 0.9 (0.8-1.4); TOTAL PROTEIN 7.6 GM/DL (6.4-8.2)
[2021-12-20 19:05] LABS: BILIRUBIN,TOTAL 0.4 MG/DL (0.1-1.0)
[2021-12-20 19:07] LABS: CREATININE SERUM 0.8 MG/DL (0.60-1.30)
[2021-12-20 19:10] LABS: MAGNESIUM 2.1 MG/DL (1.6-2.4)
--- NOTE | 2021-12-20 19:27 | Diagnostic Imaging Report ---
INDICATION: Back pain COMPARED with 05/24/2019 FINDINGS: The lungs clear. No failure, effusion or pneumothorax. IMPRESSION: No acute appearing abnormality. Dictated by: Dictated on workstation # [id number]
--- NOTE | 2021-12-20 19:33 | ED Chest Pain ---
General Chief Complaint: Back Problems Stated Complaint: [place], CHEST DISCOMFORT, NECK AND BACK PAIN Nursing Triage Note: C/O BACK PAIN IN HER UPPER BACK SINCE SUNDAY ACROSS HER SHOULDERS, NOW TODAY IS HAVING HEADACHE, "CHEST DISCOMFORT WHERE SHE CAN FEEL HERHEART FLUTTERING". STATES SHE HAS TAKEN IBUPROFEN 400 MG Q 4 HERS TO HELP BUT PAIN RETURNS. HX OF HTN Source: patient Exam Limitations: no limitations History of Present Illness Date Seen by Provider: Dec 20, 2021 Time Seen by Provider: 18:23 Initial Comments This 51-year-old woman presents to the emergency room with complaints of headache, hypertension, upper back pain between the shoulder blades, and a fluttering sensation in her chest. She has had the pain in her upper back for about 3 days. The fluttering in her chest and headache started today. She has been taking ibuprofen which has been mildly helpful. Pain worsens with position changes and movement. She denies any true chest pain or equivalents. Few PVCs are noted on telemetry. Allergies and Home Medications Allergies Coded Allergies: Penicillins (Verified Allergy, Unknown, Anaphylaxis, 05/24/19) Patient Home Medication List Home Medication List Reviewed: Yes Cyclobenzaprine HCl (Cyclobenzaprine HCl) 10 Mg Tablet, 10 MG PO Q8H PRN for SPASMS Prescribed by: EARL PARK on 12/20/212004 Ibuprofen (Ibuprofen) 800 Mg Tablet, 800 MG PO q8h PRN for PAIN, (Reported) Entered as Reported by: MARIPOSA CRUM on 09/21/13 1534 Metoprolol Succinate (Toprol Xl) 100 Mg Tab.er.24h, 100 MG PO DAILY, (Reported) Entered as Reported by: DEREK STEVENSON on 10/12/20 1044 Review of Systems Review of Systems Constitutional: no symptoms reported EENTM: No Symptoms Reported Respiratory: No Symptoms Reported Cardiovascular: See HPI Gastrointestinal: No Symptoms Reported Genitourinary: No Symptoms Reported Musculoskeletal: see HPI Skin: no symptoms reported Psychiatric/Neurological: See HPI Endocrine: No Symptoms Reported Hematologic/Lymphatic: No Symptoms Reported Past Sqenikz-Evkfdh-Qzaclw Hx Patient Social History Tobacco Use?: Yes Tobacco type used: Cigarettes Smoking Status: Current Everyday Smoker Use of E-Cig and/or Vaping dev: No Substance use?: No Alcohol Use?: No Immunizations Up To Date Tetanus Booster (TDap): Unknown PED Vaccines UTD: Yes Influenza Vaccine Up-to-Date: No; Not Current First/Initial COVID19 Vaccinat: 2020 Second COVID19 Vaccination Esteban: 2020 COVID19 Vaccine Orthodontic Technician: ENIO Seasonal Allergies Seasonal Allergies: No Past Medical History Surgery/Hospitalization HX: HTN Surgeries: Yes (HERNIA REPAIR, thoracentesis) Abdominal (Hiatal hernia), Gallbladder, Orthopedic, Tubal Ligation Respiratory: Yes Pneumonia Cardiac: Yes (previous episodes of chest pain) Hypertension Neurological: No Reproductive Disorders: No LEGAL CONTRACTS SPECIALIST History: Tubal Ligation, Menopausal Sexually Transmitted Disease: No HIV/AIDS: No Genitourinary: No Gastrointestinal: Yes Gastroesophageal Reflux, Hiatal Hernia Musculoskeletal: Yes Chronic Back Pain Endocrine: Yes Diabetes, Non-Insulin dep Cancer: No Psychosocial: No Integumentary: No Blood Disorders: No Family Medical History No Pertinent Family Hx Physical Exam Vital Signs Vital Signs - First Documented 12/20/21 18:15 Temp 36.6 Pulse 75 Resp 18 B/P (MAP) 179/108 (131) Pulse Ox 98 O2 Delivery Room Air Capillary Refill : Less Than 3 Seconds Height, Weight, BMI Height: 5'8.00" Weight: 260lbs. oz. 117.801598iu; 40.00 BMI Method:Stated General Appearance: No Apparent Distress, WD/WN HEENT: PERRL/EOMI, Normal ENT Inspection Neck: Normal Inspection, Other (Tense, tender paraspinous muscles posteriorly and at the base of the occiput) Respiratory: Chest Non Tender, Lungs Clear, Normal Breath Sounds, No Accessory Muscle Use Cardiovascular: Regular Rate, Rhythm, No Edema, No Murmur Gastrointestinal: Normal Bowel Sounds, Non Tender, Soft Extremity: Normal Inspection, Non Tender, No Pedal Edema Neurologic/Psychiatric: Alert, Oriented x3, No Motor/Sensory Deficits, Normal Mood/Affect, wreath and garland maker II-XII Norm as Tested Skin: Normal Color, Warm/Dry Progress/Results/Core Measures Results/Orders Lab Results Laboratory Tests Test 12/20/21 18:39 Range/Units White Blood Count 9.5 4.3-11.0 10^3/uL Red Blood Count 5.48 H 3.80-5.11 10^6/uL Hemoglobin 16.1 H 11.5-16.0 g/dL Hematocrit 49 35-52 % Mean Corpuscular Volume 89 80-99 fL Mean Corpuscular Hemoglobin 29 25-34 pg Mean Corpuscular Hemoglobin Concent 33 32-36 g/dL Red Cell Distribution Width 12.7 10.0-14.5 % Platelet Count 231 130-400 10^3/uL Mean Platelet Volume 9.5 9.0-12.2 fL Immature Granulocyte % (Auto) 0 % Neutrophils (%) (Auto) 63 42-75 % Lymphocytes (%) (Auto) 24 12-44 % Monocytes (%) (Auto) 11 0-12 % Eosinophils (%) (Auto) 1 0-10 % Basophils (%) (Auto) 0 0-10 % Neutrophils # (Auto) 6.0 1.8-7.8 10^3/uL Lymphocytes # (Auto) 2.3 1.0-4.0 10^3/uL Monocytes # (Auto) 1.1 H 0.0-1.0 10^3/uL Eosinophils # (Auto) 0.1 0.0-0.3 10^3/uL Basophils # (Auto) 0.0 0.0-0.1 10^3/uL Immature Granulocyte # (Auto) 0.0 0.0-0.1 10^3/uL Prothrombin Time 12.0 L 12.2-14.7 SEC INR Comment 0.9 0.8-1.4 Activated Partial Thromboplast Time 31 24-35 SEC Sodium Level 139 135-145 MMOL/L Potassium Level 4.1 3.6-5.0 MMOL/L Chloride Level 104 98-107 MMOL/L Carbon Dioxide Level 22 21-32 MMOL/L Anion Gap 13 5-14 MMOL/L Blood Urea Nitrogen 11 7-18 MG/DL Creatinine 0.80 0.60-1.30 MG/DL Estimat Glomerular Filtration Rate 89 BUN/Creatinine Ratio 14 Glucose Level 110 H 70-105 MG/DL Calcium Level 9.8 8.5-10.1 MG/DL Corrected Calcium 9.5 8.5-10.1 MG/DL Magnesium Level 2.1 1.6-2.4 MG/DL Total Bilirubin 0.4 0.1-1.0 MG/DL Aspartate Amino Transf (AST/SGOT) 16 5-34 U/L Alanine Aminotransferase (ALT/SGPT) 18 0-55 U/L Alkaline Phosphatase 71 40-136 U/L Myoglobin 19.7 10.0-92.0 NG/ML Troponin I < 0.028 <0.028 NG/ML Total Protein 7.6 6.4-8.2 GM/DL Albumin 4.4 3.2-4.5 GM/DL Influenza Type A (RT-PCR) Not Detected Not Detecte Influenza Type B (RT-PCR) Not Detected Not Detecte SARS-CoV-2 RNA (RT-PCR) Not Detected Not Detecte My Orders Orders - EARL GRIFFIN MD Covid 19 Inhouse Test (12/20/21 18:23) Influenza A And B By Pcr (12/20/21 18:23) Cbc With Automated Diff (12/20/21 18:24) Magnesium (12/20/21 18:24) Chest 1 View, Ap/Pa Only (12/20/21 18:24) Ekg Tracing (12/20/21 18:24) Comprehensive Metabolic Panel (12/20/21 18:24) Myoglobin Serum (12/20/21 18:24) Protime With Inr (12/20/21 18:24) Partial Thromboplastin Time (12/20/21 18:24) O2 (12/20/21 18:24) Monitor-Rhythm Ecg Trace Only (12/20/21 18:24) Ed Iv/Invasive Line Start (12/20/21 18:24) Troponin I [place] (12/20/21 18:24) Vital Signs/I&O 12/20/21 12/20/21 18:15 20:27 Temp 36.6 Pulse 75 77 Resp 18 22 B/P (MAP) 179/108 (131) 127/56 Pulse Ox 98 95 O2 Delivery Room Air 2 Blood Pressure Mean: 131 Progress Progress Note : Progress Note Work-up was essentially unremarkable. Hypertension resolved without any particular treatment. See discharge instructions for further discussion. Initial ECG Impression Date: Dec 20, 2021 Initial ECG Impression Time: 18:36 Initial ECG Rate: 69 Initial ECG Rhythm: Normal Sinus Initial ECG Impression: Normal Comment Normal sinus rhythm with no ST elevation or depression. No abnormal intervals or axis deviation. Diagnostic Imaging Diagonstic Imaging: Xray Plain Films/CT/US/NM/MRI: chest Comments NAME: HAMLET DEMARCOIGETTE Michi MED REC#: [id number] PT STATUS: REG ER : 1970 PHYSICIAN: EARL GRIFFIN MD ADMIT DATE: 12/20/21/ER Signed Date of Exam:12/20/21 CHEST 1 VIEW, AP/PA ONLY INDICATION: Back pain COMPARED with 05/24/2019 FINDINGS: The lungs clear. No failure, effusion or pneumothorax. IMPRESSION: No acute appearing abnormality. Dictated by: Dictated on workstation # [id number] Dict: 12/20/211919 Trans: 12/20/212024 [facility] [id number] Interpreted by: NICO OAKLEY Electronically signed by: NICO OAKLEY 12/20/212024 Departure Impression Primary Impression: Palpitations Additional Impressions: Upper back pain Tension headache Disposition: 01 HOME, SELF-CARE Condition: Stable Departure-Patient Inst. Decision time for Depature: 19:53 Referrals: RICH TRIVEDI MD (PCP/Family) Primary Care Physician Patient Instructions: Palpitations, Upper Back Pain, Ventricular Premature Beats Add. Discharge Instructions: Based on your evaluation in the emergency room, your palpitations may be related to premature ventricular contractions (PVCs). These are not inherently dangerous. If your palpitations become persistent and bothersome, please discuss with Dr. Trivedi or Dr. Bo. You may need cardiac monitoring such as a Holter monitor to evaluate your palpitations further. Your upper back pain seems to be musculoskeletal in nature based on the history you provided in the ER. You may continue taking ibuprofen up to 600 mg every 6 hours as needed for primary short-term pain management. Take with food or milk to avoid stomach upset. Add Tylenol (acetaminophen) up to 1000 mg every 6 hours as needed for additional pain relief. Nonpharmacologic therapies such as massage therapy, physical therapy, chiropractic treatments, or acupuncture may also be very helpful in treating your pain. Gentle heat and gentle stretching may be helpful also. These treatments may also be helpful for tension headaches. Additionally, you may try the cyclobenzaprine muscle relaxer at bedtime to help alleviate tension headaches. Continue your medications as previously prescribed. Work toward quitting smoking as this will improve your bone health and your general health. Acid reflux could also be a contributing factor to your back pain. You may try an antacid medication such as Pepcid (famotidine) 20 mg twice daily or omeprazole 20 mg daily for the next couple of weeks. In general you can help reduce acid reflux by avoiding the following: Eating large meals, eating close to bedtime, caffeine, carbonation, citrus fruits and juices, tomato products, chocolate, mints, NSAID medications such as ibuprofen or naproxen, alcohol, tobacco, spicy foods, fatty/greasy foods, or anything else you know irritate your stomach.. Follow-up with your primary care provider within the next couple of weeks for further discussion about these issues. Return to the ER if you have worsening symptoms despite following these recommendations. All discharge instructions reviewed with patient and/or family. Voiced understanding. Scripts Cyclobenzaprine HCl (Cyclobenzaprine HCl) 10 Mg Tablet 10 MG PO Q8H PRN for SPASMS, #10 TAB 0 Refills Prov: EARL GRIFFIN MD 12/20/21 Copy Copies To 1: RICH TRIVEDI MD Copies To 2: DINA BO MD, JOSHUA T MD Dec 20, 2021 19:33
[2021-12-20] MEDS ORDERED: CYCL10TA25 PO (20:05)
[2021-12-20 20:27] VITALS: BP 127/56
== END 2021-12-20 20:27 | disposition home or self-care (01) ==
LOC: EDUNIT# 18:04 → ER 18:07
DX: G44.209 Tension-type headache, unspecified, not intractable (principal); M54.6 Pain in thoracic spine; R00.2 Palpitations; F17.210 Nicotine dependence, cigarettes, uncomplicated; Z20.822 Contact with and (suspected) exposure to COVID-19
CPT/HCPCS: 36415; 71045; 80053; 83735; 83874; 84484; 85025; 85610; 85730; 87636; 93005; 93041

== ENCOUNTER → 2022-06-23 | Outpatient (CLI) | payer BC ==
[~2022-06-23] MED LIST changes: +CYCL10TA25 PO
== END ==
LOC: CARD 09:29
PROVIDERS: ATTEND Internal Medicine Cardiovascular Disease
DX: I34.0 Nonrheumatic mitral (valve) insufficiency (principal); I27.20 Pulmonary hypertension, unspecified
CPT/HCPCS: 93306

== ENCOUNTER 2022-11-09 22:41 | Emergency (ER) | payer BC ==
[~2022-11-09] VITALS: Ht 172 cm; Wt 120.0 kg
[2022-11-09 23:14] LABS: BASOPHILS % (AUTO) 0 % (0-10); EOSINOPHILS # (AUTO) 0.1 10^3/uL (0.0-0.3); EOSINOPHILS % (AUTO) 1 % (0-10); HEMATOCRIT 46 % (35-52); HEMOGLOBIN 15.2 g/dL (11.5-16.0); LYMPHOCYTES # (AUTO) 2.6 10^3/uL (1.0-4.0); LYMPHOCYTES % (AUTO) 26 % (12-44); MEAN CORPUSCULAR HEMOGLOBIN 30 pg (25-34); MEAN CORPUSCULAR HGB CONC 33 g/dL (32-36); MEAN CORPUSCULAR VOLUME 89 fL (80-99); MEAN PLATELET VOLUME 9.7 fL (9.0-12.2); MONOCYTES # (AUTO) 1.1 10^3/uL (0.0-1.0); MONOCYTES % (AUTO) 11 % (0-12); NEUTROPHILS # (AUTO) 6.3 10^3/uL (1.8-7.8); NEUTROPHILS % (AUTO) 62 % (42-75); PLATELET COUNT 206 10^3/uL (130-400); WHITE BLOOD COUNT 10.2 10^3/uL (4.3-11.0)
[2022-11-09] MEDS ORDERED: ASPIRIN 81 MG CHEW (CHILDREN'S ASA) PO ONE (23:15)
[2022-11-09] MEDS ORDERED: NITROGLYCERIN 0.4 MG SL TABS BTL 25'S SL PRN (23:15)
[2022-11-09 23:28] LABS: INR 0.9 (0.8-1.4); PROTHROMBIN TIME PATIENT 12.2 SEC (12.2-14.7)
[2022-11-09 23:32] LABS: FIBRIN DEGRADATION PRODUCTS 0.61 UG/ML (0.00-0.49)
[2022-11-09 23:36] LABS: ALANINE AMINOTRANSFERASE 15 U/L (0-55); ALBUMIN 4.3 GM/DL (3.2-4.5); ALKALINE PHOSPHATASE 70 U/L (40-136); AMYLASE 35 U/L (25-125); BILIRUBIN,TOTAL 0.3 MG/DL (0.1-1.0); BUN/CREATININE RATIO 18; CALCIUM 9.7 MG/DL (8.5-10.1); CARBON DIOXIDE 23 MMOL/L (21-32); CHLORIDE 104 MMOL/L (98-107); CREATINE KINASE 78 U/L (29-168); CREATININE SERUM 0.91 MG/DL (0.60-1.30); GFR ESTIMATED 75; GLUCOSE 115 MG/DL (70-105); LIPASE 25 U/L (8-78); MAGNESIUM 2.1 MG/DL (1.6-2.4); POTASSIUM 3.8 MMOL/L (3.6-5.0); SODIUM 137 MMOL/L (135-145); TOTAL PROTEIN 7.5 GM/DL (6.4-8.2)
[2022-11-09 23:43] LABS: CREATINE KINASE MB 0.5 NG/ML (<6.6)
[2022-11-09] MEDS ORDERED: KETOROLAC 30 MG/ML VIAL IVP STA (23:56)
[2022-11-10] MEDS ORDERED: LACTATED RINGERS 1,000 ML IV ONE
--- NOTE | 2022-11-10 00:06 | ED General ---
General Chief Complaint: Chest Pain Stated Complaint: UPPER BACK PAIN Nursing Triage Note: Pt stated yesterday around 1400hrs constant stabbing back pain and some chest disconfort, 5/10 pain scale. Pt stated moving arms makes pain worse, Pt stated took IB around 1700hrs today and it helps. Pt denies any nausea, vomiting, SOB, sweaty. Pt stated has some right eye change vision. Pt denies any injuries. Source of Information: Patient History of Present Illness Date Seen by Provider: Nov 10, 2022 Time Seen by Provider: 23:08 Initial Comments PT ARRIVES VIA POV FROM HOME SHE STATES THAT SINCE AROUND 1400 YESTERDAY AFTERNOON, WHILE SITTING, SHE BEGAN TO HAVE SHARP PAIN IN HER UPPER BACK BETWEEN HER SHOULDER BLADES AND A DULL ACHING PAIN IN THE CENTER OF HER CHEST THE PAIN IN HER BACK IS CONSTANT AND IS WORSE WITH MOVEMENTS, LAYING FLAT ON HER BACK OR TAKING A DEEP BREATH, IT IS BETTER WITH IBUPROFEN--LAST DOSE 1700 TODAY. RATES PAIN IN BACK A 5/10 AT THIS TIME THE PAIN IN THE CENTER OF HER CHEST COMES AND GOES AND NOTHING WORSENS OR IMPROVES IT. RATES PAIN IN HER CHEST A 1/10 AT THIS TIME PT SMOKES 1 PPD, NO CHANGE IN CHRONIC COUGH SHE HAS BEEN SLIGHTLY MORE SHORT OF BREATH THAN NORMAL SINCE YESTERDAY NO FEVER/SWEATS/CHILLS NO SWELLING IN LEGS/FEET OR PAIN IN CALVES NO GI SYMPTOMS NO PALPITATIONS NO DIZZINESS OR SYNCOPE. NO RECENT ILLNESS NO INJURY OR UNUSUAL ACTIVITY. SHE WORKS AT [employer], BUT DOES NOT DO ANY LIFTING, ETC. SHE HAS HAD COVID VACCINE X 2, NO FLU VACCINE SHE STATES HER ONLY MEDICAL PROBLEM IS HTN, AND STATES SHE IS FOLLOWED BY DR. PRETTY FOR THAT SHE STATES SHE HAS HAD STRESS TEST IN THE PAST THAT WAS NORMAL. SHE DENIES ANY HISTORY OF CARDIAC PROBLEMS OR ANY RESPIRATORY PROBLEMS SUCH COPD OR ASTHMA OR CHRONIC BRONCHITIS ON REVIEW OF PRIOR RECORDS, SHE HAS HAD EPISODES OF CHEST PAIN IN THE PAST, AND HAS CHRONIC BACK PAIN SHE ALSO HAS HISTORY OF NON INSULIN DEPENDENT DIABETES. PT HAD CARDIAC CATH 10/12/[address] ALBERTO: CONCLUSIONS: 1. No significant coronary artery disease seen on this study. 2. Normal global left ventricular systolic function with an ejection fraction of approximately 60%. 3. Mild elevation of left ventricular end-diastolic pressure. DISCUSSION AND RECOMMENDATIONS: Based on results of the study, symptoms do not appear to be of coronary origin. Myocardial perfusion imaging appears to have been false positive. Continuing risk factor modification is advised. Outpatient followup is advised. PCP: DR. RICH TRIVEDI CONTINUOUS CRUSHER OPERATOR: DR. PRETTY Allergies and Home Medications Allergies Coded Allergies: Penicillins (Verified Allergy, Unknown, Anaphylaxis, 05/24/19) Patient Home Medication List Home Medication List Reviewed: Yes Cyclobenzaprine HCl (Cyclobenzaprine HCl) 10 Mg Tablet, 10 MG PO Q8H PRN for SPASMS Prescribed by: EARL PARK on 12/20/212004 Ibuprofen (Ibuprofen) 800 Mg Tablet, 800 MG PO q8h PRN for PAIN, (Reported) Entered as Reported by: MARIPOSA CRUM on 09/21/13 1534 Ketorolac Tromethamine (Ketorolac Tromethamine) 10 Mg Tablet, 10 MG PO Q6H Prescribed by: BRIANNE RODRIGUEZ on 11/10/22 0353 Metoprolol Succinate (Toprol Xl) 100 Mg Tab.er.24h, 100 MG PO DAILY, (Reported) Entered as Reported by: DEREK STEVENSON on 10/12/20 1044 Tizanidine HCl (Zanaflex) 4 Mg Capsule, 4 MG PO TID Prescribed by: BRIANNE RODRIGUEZ on 11/10/22 0353 Review of Systems Review of Systems Constitutional: no symptoms reported EENTM: no symptoms reported Respiratory: see HPI Cardiovascular: see HPI Gastrointestinal: no symptoms reported Genitourinary: no symptoms reported : No (MENOPAUSALX 12 YEARS) Musculoskeletal: see HPI Skin: no symptoms reported Psychiatric/Neurological: No Symptoms Reported Hematologic/Lymphatic: No Symptoms Reported Immunological/Allergic: no symptoms reported Past Cjoihzn-Bdjzpw-Kwnbdd Hx Patient Social History Tobacco Use?: Yes (SMOKES 1 PPD) Tobacco type used: Cigarettes Smoking Status: Current Everyday Smoker Use of E-Cig and/or Vaping dev: No Substance use?: No Alcohol Use?: Yes Alcohol Frequency: Rarely Pt feels they are or have been: No Immunizations Up To Date Tetanus Booster (TDap): Unknown PED Vaccines UTD: Yes First/Initial COVID19 Vaccinat: 2020 Second COVID19 Vaccination Esteban: 2020 Seasonal Allergies Seasonal Allergies: No Past Medical History Surgery/Hospitalization HX: HTN, bill knee, tubal ligation Surgeries: Yes (HERNIA REPAIR, thoracentesis; LAP NITHIN;BILAT KNEE SCOPES;) Abdominal, Gallbladder, Orthopedic, Tonsillectomy, Tubal Ligation Respiratory: Yes Pneumonia Cardiac: Yes (previous episodes of chest pain) Hypertension Neurological: No Reproductive Disorders: No POSTAL WORKER History: Tubal Ligation, Menopausal Sexually Transmitted Disease: No HIV/AIDS: No Genitourinary: No Gastrointestinal: Yes (S/P LAP NITHIN AND CHOLECYSTECTOMY) Gastroesophageal Reflux, Hiatal Hernia Musculoskeletal: Yes Chronic Back Pain Endocrine: Yes Diabetes, Non-Insulin dep HEENT: Yes (S/P TONSILLECTOMY) Cancer: No Psychosocial: No Integumentary: No Blood Disorders: No Family Medical History No Pertinent Family Hx CARDIAC CATH 10/12/[address] ALBERTO: CONCLUSIONS: 1. No significant coronary artery disease seen on this study. 2. Normal global left ventricular systolic function with an ejection fraction of approximately 60%. 3. Mild elevation of left ventricular end-diastolic pressure. DISCUSSION AND RECOMMENDATIONS: Based on results of the study, symptoms do not appear to be of coronary origin. Myocardial perfusion imaging appears to have been false positive. Continuing risk factor modification is advised. Outpatient followup is advised. Physical Exam Vital Signs Vital Signs - First Documented 11/09/22 11/10/22 22:51 03:54 Temp 32.6 Pulse 78 Resp 20 B/P (MAP) 149/67 (94) Pulse Ox 96 O2 Delivery Room Air Capillary Refill : Less Than 3 Seconds Height, Weight, BMI Height: 5'8.00" Weight: 260lbs. oz. 117.225478bo; 40.00 BMI Method:Stated General Appearance: No Apparent Distress, WD/WN, Obese, Other (REEKS OF CIGARETTES) HEENT: PERRL/EOMI Neck: Normal Inspection Respiratory: Chest Non Tender, Normal Breath Sounds, No Accessory Muscle Use, No Respiratory Distress Cardiovascular: Regular Rate, Rhythm, No Edema, No JVD, No Murmur, Normal Peripheral Pulses Gastrointestinal: Non Tender, Soft Back: Normal Inspection, No CVA Tenderness, No Vertebral Tenderness Extremity: Normal Capillary Refill, Normal Inspection, Normal Range of Motion, Non Tender, No Calf Tenderness, No Pedal Edema Neurologic/Psychiatric: Alert, Oriented x3, No Motor/Sensory Deficits, Normal Mood/Affect, customer experience leader II-XII Norm as Tested Skin: Normal Color, Warm/Dry; No Rash Progress/Results/Core Measures Suspected Sepsis SIRS Temperature: Pulse: 78 Respiratory Rate: 20 Laboratory Tests 11/09/22 23:01: White Blood Count 10.2 Blood Pressure 149 /67 Mean: 94 Laboratory Tests 11/09/22 23:01: Creatinine 0.91, INR Comment 0.9, Platelet Count 206, Total Bilirubin 0.3 Results/Orders Lab Results Laboratory Tests Test 11/09/22 23:01 Range/Units White Blood Count 10.2 4.3-11.0 10^3/uL Red Blood Count 5.14 H 3.80-5.11 10^6/uL Hemoglobin 15.2 11.5-16.0 g/dL Hematocrit 46 35-52 % Mean Corpuscular Volume 89 80-99 fL Mean Corpuscular Hemoglobin 30 25-34 pg Mean Corpuscular Hemoglobin Concent 33 32-36 g/dL Red Cell Distribution Width 12.3 10.0-14.5 % Platelet Count 206 130-400 10^3/uL Mean Platelet Volume 9.7 9.0-12.2 fL Immature Granulocyte % (Auto) 0 % Neutrophils (%) (Auto) 62 42-75 % Lymphocytes (%) (Auto) 26 12-44 % Monocytes (%) (Auto) 11 0-12 % Eosinophils (%) (Auto) 1 0-10 % Basophils (%) (Auto) 0 0-10 % Neutrophils # (Auto) 6.3 1.8-7.8 10^3/uL Lymphocytes # (Auto) 2.6 1.0-4.0 10^3/uL Monocytes # (Auto) 1.1 H 0.0-1.0 10^3/uL Eosinophils # (Auto) 0.1 0.0-0.3 10^3/uL Basophils # (Auto) 0.0 0.0-0.1 10^3/uL Immature Granulocyte # (Auto) 0.0 0.0-0.1 10^3/uL Prothrombin Time 12.2 12.2-14.7 SEC INR Comment 0.9 0.8-1.4 Activated Partial Thromboplast Time 31 24-35 SEC D-Dimer 0.61 H 0.00-0.49 UG/ML Sodium Level 137 135-145 MMOL/L Potassium Level 3.8 3.6-5.0 MMOL/L Chloride Level 104 98-107 MMOL/L Carbon Dioxide Level 23 21-32 MMOL/L Anion Gap 10 5-14 MMOL/L Blood Urea Nitrogen 16 7-18 MG/DL Creatinine 0.91 0.60-1.30 MG/DL Estimat Glomerular Filtration Rate 75 BUN/Creatinine Ratio 18 Glucose Level 115 H 70-105 MG/DL Calcium Level 9.7 8.5-10.1 MG/DL Corrected Calcium 9.5 8.5-10.1 MG/DL Magnesium Level 2.1 1.6-2.4 MG/DL Total Bilirubin 0.3 0.1-1.0 MG/DL Aspartate Amino Transf (AST/SGOT) 16 5-34 U/L Alanine Aminotransferase (ALT/SGPT) 15 0-55 U/L Alkaline Phosphatase 70 40-136 U/L Total Creatine Kinase 78 29-168 U/L Creatine Kinase MB 0.5 <6.6 NG/ML Myoglobin 19.8 10.0-92.0 NG/ML Troponin I < 0.028 <0.028 NG/ML B-Type Natriuretic Peptide 65.7 <100.0 PG/ML Total Protein 7.5 6.4-8.2 GM/DL Albumin 4.3 3.2-4.5 GM/DL Amylase Level 35 25-125 U/L Lipase 25 8-78 U/L My Orders Orders - BRIANNE RODRIGUEZ DO Ekg Tracing (11/09/22 22:59) Nitroglycerin 0.4 Mg Btl 25's (Nitrostat (11/09/22 23:15) Aspirin Chewable Tablet (Baby Aspirin Ch (11/09/22 23:15) Cbc With Automated Diff (11/09/22 23:07) Magnesium (11/09/22 23:07) Chest 1 View, Ap/Pa Only (11/09/22 23:07) Comprehensive Metabolic Panel (11/09/22 23:07) Myoglobin Serum (11/09/22 23:07) Protime With Inr (11/09/22 23:07) Partial Thromboplastin Time (11/09/22 23:07) O2 (11/09/22 23:07) Monitor-Rhythm Ecg Trace Only (11/09/22 23:07) Ed Iv/Invasive Line Start (11/09/22 23:07) Creatine Kinase (11/09/22 23:07) Creatine Kinase Mb (11/09/22 23:07) Lipase (11/09/22 23:07) Amylase (11/09/22 23:07) Bnp Mcintosh (11/09/22 23:07) Fibrin Degradation Products (11/09/22 23:07) Troponin I Mcintosh (11/09/22 23:07) Ed Iv/Invasive Line Start (11/09/22 23:56) Lactated Ringers (Lr 1000 Ml Iv Solution (11/10/22 00:00) Ketorolac Injection (Toradol Injection) (11/09/22 23:56) Ct Angio Chest W (R/O Pe) (11/10/22 00:01) Iohexol Injection (Omnipaque 350 Mg/Ml 1 (11/10/22 00:30) Received Contrast (Hold Metformin- Contr (11/10/22 00:30) Sodium Chloride Flush (Catheter Flush Sy (11/10/22 00:30) Ns (Ivpb) (Sodium Chloride 0.9% Ivpb Bag (11/10/22 00:30) Medications Given in ED Current Medications Medications Dose Ordered Sig/Beck Route Start Time Stop Time Status Last Admin Dose Admin Aspirin 324 mg ONCE ONCE PO 11/09/22 23:15 11/09/22 23:16 DC 11/09/22 23:14 324 MG Iohexol 100 ml ONCE ONCE IV 11/10/22 00:30 11/10/22 00:31 DC 11/10/22 00:49 90 ML Lactated Ringer's 1,000 ml @ 0 mls/hr Q0M ONCE IV 11/10/22 00:00 11/10/22 00:01 DC 11/10/22 00:00 0 MLS/HR Nitroglycerin 0.4 mg UD PRN SL 11/09/22 23:15 11/10/22 03:57 DC 11/09/22 23:15 0.4 MG Sodium Chloride 10 ml NEEDED PRN IV 11/10/22 00:30 11/10/22 03:57 DC 11/10/22 00:49 10 ML Sodium Chloride 100 ml ONCE ONCE IV 11/10/22 00:30 11/10/22 00:31 DC 11/10/22 00:49 80 ML Vital Signs/I&O 11/09/22 11/10/22 22:51 03:54 Temp 32.6 36.5 Pulse 78 64 Resp 20 18 B/P (MAP) 149/67 (94) 134/74 Pulse Ox 96 95 O2 Delivery Room Air Capillary Refill : Less Than 3 Seconds Blood Pressure Mean: 94 Progress Note : Progress Note CHEST PAIN PROTOCOL INITIATED GIVEN: -ASPIRIN -NTG--NO RELIEF -TORADOL--COMPLETE RELIEF OF CHEST AND BACK PAIN -IV FLUIDS NO COMPLAINTS FOR REMAINDER OF ER STAY VITALS STABLE. NO COUGH NO DYSPNEA NO HYPOXIA NO FEVER NO CHEST PAIN DURING ER STAY LABS ALL ESSENTIALLY NORMAL, INCLUDING CARDIAC ENZYMES COVID AND FLU TESTS ARE NEGATIVE EKG IS UNREMARKABLE, WITH ESSENTIALLY NORMAL CARDIAC CATH IN 2020. CXR IS UNREMARKABLE CT CHEST ANGIOGRAM IS UNREMARKABLE FOR ACUTE PROCESS. INCIDENTAL FINDING OF LEFT PULMONARY NODULE DISCUSSED WITH PT AND NEED TO FOLLOW UP WITH HER PCP TO MONITOR THIS. DISCUSSED TEST RESULTS, ANTICIPATED COURSE, SYMPTOMATIC TREATMENT, MEDICATIONS, NEED FOR FOLLOW UP AND RETURN PRECAUTIONS. ALSO DISCUSSED SMOKING CESSATION REVIEWED PRIOR RECORDS INCLUDING ER VISITS, ADMITS/H&P'S/CONSULTS/DISCHARGE SUMMARIES, TESTS/PROCEDURES MARKED DELAY IN OBTAINING CT CHEST ANGIOGRAM RESULTS FROM [facility] DUE TO HIGH VOLUME ECG Initial ECG Impression Date: Nov 09, 2022 Initial ECG Impression Time: 23:10 Initial ECG Rate: 73 Initial ECG Rhythm: Normal Sinus Initial ECG Intervals: Normal Initial ECG Impression: Normal Initial ECG Comparisson: Unchanged Comment INTERPRETED BY ME Diagnostic Imaging Comments CXR--NO ACUTE PROCESS, PENDING RADIOLOGIST REVIEW CT CHEST ANGIOGRAM--PER [facility] VIA FAX AT 0688 -NO P.E. -NO FOCAL AIRSPACE CONSOLIDATION -NO PLEURAL EFFUSION OR PNEUMOTHORAX -LEFT LINGULAR PULMONARY NODULE MEASURING 5 MM IN DIAMETER. Reviewed: Reviewed by Me Departure Impression Primary Impression: Upper back pain Additional Impressions: Chest wall pain Pulmonary nodule Heavy smoker Disposition: HOME, SELF-CARE Condition: Improved Departure-Patient Inst. Decision time for Depature: 03:48 Referrals: RICH TRIVEDI MD (PCP/Family) Primary Care Physician Patient Instructions: Costochondritis, Upper Back Pain ED, Chest Pain, Adult ED, Quitting Smoking ED, Pulmonary nodule Add. Discharge Instructions: HOME, REST MOIST HEAT TO SORE AREAS AT 20 MINUTE INTERVALS CONTINUE YOUR REGULAR MEDICATIONS PRESCRIBED FOLLOW UP WITH YOUR DR IN 3-4 DAYS FOR FURTHER CARE, RETURN TO ER IF SYMPTOMS WORSEN All discharge instructions reviewed with patient and/or family. Voiced understanding. Scripts Ketorolac Tromethamine (Ketorolac Tromethamine) 10 Mg Tablet 10 MG PO Q6H for Pain, #15 TAB Prov: BRIANNE RODRIGUEZ DO 11/10/22 Tizanidine HCl (Zanaflex) 4 Mg Capsule 4 MG PO TID for Spasms, #15 CAP Prov: BRIANNE RODRIGUEZ DO 11/10/22 BRIANNE RODRIGUEZ DO Nov 10, 2022 00:06
[2022-11-10] MEDS ORDERED: IOHEXOL 350 MG/ML 100 ML (OMNIPAQUE 350) VIAL IV ONE (00:30)
[2022-11-10] MEDS ORDERED: HOLD METFORMIN - RECEIVED CONTRAST 20 ML VIAL IV SCH (00:30)
[2022-11-10] MEDS ORDERED: CATHETER FLUSH 10 ML SYR IV PRN (00:30)
[2022-11-10] MEDS ORDERED: NS 100 ML (IVPB) BAG IV ONE (00:30)
[2022-11-10] MEDS ORDERED: TIZA4CAP PO (03:53)
[2022-11-10] MEDS ORDERED: KETO10TA PO (03:53)
[2022-11-10 03:54] VITALS: BP 134/74
--- NOTE | 2022-11-10 05:33 | Diagnostic Imaging Report ---
INDICATION: Chest pain. TECHNIQUE: CT images of the chest following the administration of intravenous contrast. Multiplanar including MIPS reformatted images. Auto Exposure Controls were utilized during the CT exam to meet ALARA standards for radiation dose reduction. CORRELATION: None FINDINGS: There is no significant mediastinal, axillary and/or hilar lymphadenopathy. The heart size is unremarkable. Thoracic aorta normal in contour. No pulmonary artery filling defect to suggest pulmonary embolism. The lung phelps are clear of infiltrate. 5 mm pleural-based nodule left upper lobe, lingula. No effusion. The visualized portions of the upper abdomen are unremarkable. The visualized osseous structures demonstrate no acute findings. IMPRESSION: 1. Negative for pulmonary embolism or acute aortic syndrome. 2. Small pleural-based nodule left upper lobe. According to Fleischner study guidelines, no follow-up necessary for low risk or high risk patient. Initial report was provided by [facility]. Dictated by: Dictated on workstation # [id number]
--- NOTE | 2022-11-10 07:02 | Diagnostic Imaging Report ---
INDICATION: Chest pain. TECHNIQUE: Single view chest 11:26 PM. CORRELATION STUDY: 12/20/2021 FINDINGS: The heart size, mediastinal configuration and pulmonary vascularity are within normal limits. The lungs are clear with no consolidating infiltrate. There is no significant effusion or pneumothorax. IMPRESSION: 1. Negative appearing single view chest. Dictated by: Dictated on workstation # [id number]
== END 2022-11-10 03:57 | disposition home or self-care (01) ==
LOC: EDUNIT# 22:41 → ER 22:42
DX: M54.6 Pain in thoracic spine (principal); R07.89 Other chest pain; R91.1 Solitary pulmonary nodule; E66.9 Obesity, unspecified; F17.210 Nicotine dependence, cigarettes, uncomplicated; Z68.41 Body mass index [BMI] 40.0-44.9, adult
CPT/HCPCS: 36415; 71045; 71275; 80053; 82150; 82550; 82553; 83690; 83735; 83874; 83880; 84484; 85025; 85379; 85610; 85730; 93005; 93041